=== PATIENT | female | born 1940 | race Caucasian/White ===

== ENCOUNTER 2025-01-12 08:06 | Observation (INO) ==
--- NOTE | 2024-12-15 12:56 | PAT Medication Instructions ---
Medication Instructions Date of Service December 15, 2024 Home Medications alendronate 70 mg tablet (Fosamax) 70 mg PO WK ascorbic acid (vitamin C) 250 mg chewable tablet (Vitamin C) 500 mg PO DAILY aspirin 81 mg tablet,delayed release 81 mg PO DAILY cholecalciferol (vitamin D3) 50 mcg (2,000 unit) tablet (Vitamin D3) 100 mcg PO QAM ferrous sulfate 142 mg (45 mg iron) tablet,extended release (Slow Fe) 142 mg PO DAILY furosemide 40 mg tablet (Lasix) 40 mg PO QAM levothyroxine 25 mcg tablet (Synthroid) 25 mcg PO QAM lisinopril 20 mg tablet 20 mg PO QAM simvastatin 20 mg tablet 20 mg PO QPM vit C 250 mg-vit E 90 mg-zinc 40 mg-copper 1 di-lvhhul-cwcbbt capsule (PreserVision AREDS-2) 1 tab PO BID acetaminophen 500 mg tablet (Tylenol Extra Strength) 1,000 mg PO UD PRN Pain calcium 500 mg-vitamin D3 200 unit-vitamin K 40 mcg chewable tablet 1 tab PO DAILY dofetilide 500 mcg capsule 500 mcg PO BID doxylamine succinate 25 mg tablet 0 mg PO HS ibuprofen 400 mg tablet 400 - 600 mg PO UD PRN Pain ASK your surgeon for instructions ibuprofen 400 mg tablet 400 - 600 mg PO UD PRN Pain ASK your prescriber and surgeon aspirin 81 mg tablet,delayed release 81 mg PO DAILY STOP taking 2 weeks before surgery (or as soon as possible if surgery is within 2 weeks) vit C 250 mg-vit E 90 mg-zinc 40 mg-copper 1 fj-oyvbnq-salbbf capsule (PreserVision AREDS-2) 1 tab PO BID DO NOT take the morning of surgery alendronate 70 mg tablet (Fosamax) 70 mg PO WK ascorbic acid (vitamin C) 250 mg chewable tablet (Vitamin C) 500 mg PO DAILY cholecalciferol (vitamin D3) 50 mcg (2,000 unit) tablet (Vitamin D3) 100 mcg PO QAM ferrous sulfate 142 mg (45 mg iron) tablet,extended release (Slow Fe) 142 mg PO DAILY furosemide 40 mg tablet (Lasix) 40 mg PO QAM lisinopril 20 mg tablet 20 mg PO QAM calcium 500 mg-vitamin D3 200 unit-vitamin K 40 mcg chewable tablet 1 tab PO DAILY Take morning of surgery With a small sip of water, OTHERWISE NOTHING TO EAT OR DRINK AFTER MIDNIGHT: levothyroxine 25 mcg tablet (Synthroid) 25 mcg PO QAM acetaminophen 500 mg tablet (Tylenol Extra Strength) 1,000 mg PO UD PRN Pain (if needed) dofetilide 500 mcg capsule 500 mcg PO BID Take evening before surgery simvastatin 20 mg tablet 20 mg PO QPM acetaminophen 500 mg tablet (Tylenol Extra Strength) 1,000 mg PO UD PRN Pain (if needed) dofetilide 500 mcg capsule 500 mcg PO BID doxylamine succinate 25 mg tablet 0 mg PO HS Other Notes If you have any questions please call us at [phone] or [phone] or [phone] or [phone]
--- NOTE | 2024-12-22 13:33 | Anesthesiology Consultation ---
Date of Service December 22, 2024 Assessment & Plan (1) Encounter for pre-operative examination: - awaiting PCP clearance for anemia/co-morbidities, patient was seen 12/16 but testing was done after visit. Optimization form to be faxed to [facility]. - awaiting surgeon ordered UA, patient reported plan to complete this through [facility] lab. - cardiology office visit 09/27/24: "...afib, long-standing persistent, initial dx 2006...CAD mild nonobstructive, dx 2007. heart failure recovered EF. Aortic stenosis...symptoms are stable from last visit...stable dyspnea on exertion with heavy exertion, improves with rest...+ bright red blood in her stool. Seeing GI...in NSR...avoid other sander blockade...heart failure...compensated, doing well...plan to see her back in 6 months..." - Outpatient joint assessment: Patient is currently scheduled for inpatient pathway. If re-evaluated and patient/surgeon requests outpatient pathway, patient is not candidate for outpatient joint program. Chart Review Chart Review: Patient seen in Pre Admission Testing Teaching & Discussion Pre-Anesthesia Teaching/Discussion Notes: Instructed NPO after midnight before surgery, except medications with 15 cc of water. Medication instructions provided according to the PAT guidelines. History Surgery Operation Date: 01/12/25 07:15 Proposed Procedures p Left Reverse Total Shoulder Arthroplasty - Wicho Blackomn MD Height/Weight Height: 5 ft Weight: 65.8 kg Allergies Allergy/AdvReac Type Severity Reaction Status Date / Time adhesive Allergy Mild skin Verified 12/15/24 08:31 irritation Medications Home Medications Medication Instructions Recorded Confirmed Last Taken alendronate 70 mg tablet (Fosamax) 70 mg PO WK 07/09/22 12/15/24 Unknown ascorbic acid (vitamin C) 250 mg 500 mg PO DAILY 07/09/22 12/15/24 Unknown chewable tablet (Vitamin C) aspirin 81 mg tablet,delayed 81 mg PO DAILY 07/09/22 12/15/24 Unknown release cholecalciferol (vitamin D3) 50 100 mcg PO QAM 07/09/22 12/15/24 Unknown mcg (2,000 unit) tablet (Vitamin D3) ferrous sulfate 142 mg (45 mg 142 mg PO DAILY 07/09/22 12/15/24 Unknown iron) tablet,extended release (Slow Fe) furosemide 40 mg tablet (Lasix) 40 mg PO QAM 07/09/22 12/15/24 Unknown levothyroxine 25 mcg tablet 25 mcg PO QAM 07/09/22 12/15/24 Unknown (Synthroid) lisinopril 20 mg tablet 20 mg PO QAM 07/09/22 12/15/24 Unknown simvastatin 20 mg tablet 20 mg PO QPM 07/09/22 12/15/24 Unknown vit C 250 mg-vit E 90 mg-zinc 40 1 tab PO BID 07/09/22 12/15/24 Unknown mg-copper 1 zh-zvtyop-bgcrdw capsule (PreserVision AREDS-2) acetaminophen 500 mg tablet 1,000 mg PO UD PRN Pain 12/15/24 12/15/24 Unknown (Tylenol Extra Strength) calcium 500 mg-vitamin D3 200 1 tab PO DAILY 12/15/24 12/15/24 Unknown unit-vitamin K 40 mcg chewable tablet dofetilide 500 mcg capsule 500 mcg PO BID 12/15/24 12/15/24 Unknown doxylamine succinate 25 mg tablet 0 mg PO HS 12/15/24 12/15/24 Unknown ibuprofen 400 mg tablet 400 - 600 mg PO UD PRN Pain 12/15/24 12/15/24 Unknown Past Medical History Medical History (Updated 12/22/24 @ 16:16 by Carmelina Malave PA-C) Anemia most recent iron infusions Mar 2024. Aortic stenosis Mild to moderate aortic stenosis (CHELE 1.2 cm2, mean gradient 19 mmHg) on 2024 echo Arthritis Atrial fibrillation dx approx 2006, hx multiple cardioversions, 2 ablation procedures and presence of watchman device. History of GI bleed (2016) hx blood transfusions. History of postoperative nausea History of UTI tx for oct 2024. At current end of urination sensitivity felt/plans to discuss and request check at pcp visit 12/16/24-just finished antibiotic course yesterday with symptom resolution Hyperlipidemia Hypertension controlled, stable per pt Hypothyroidism Macular degeneration Injections for (Eyelea) very 4 months, due 09 Feb 2025 Osteoporosis bone density due Dec 2024. Patient denies h/o stroke, seizures, heart attack, heart failure, DM, or blood clots/DVTs. Exercise / Class Metabolic Activity II 4-5 Yardwork/Stairs/Walk up hill (occasional shortness of breath with one flight of stairs-ongoing several years-denies change or worsening; denies chest discomfort) Past Family History Family History Other No family history of adverse response to anesthesia Past Surgical History Surgical History H/O cardiac radiofrequency ablation 2016 History of anesthesia reaction bp dropped with carpal tunnel sx and after watchman procedure had nausea. History of bilateral tubal ligation History of cardiac cath >NO STENTS : pt is not sure if she had cath in the , verifies having heart cath in Mar 2007 heart cath in [place]/no stent(s). History of cardioversion X 6 (LAST TIME 05/03/22) FOLLOWED BY VEGA NOGUERA History of carpal tunnel release LEFT History of colonoscopy History of esophagogastroduodenoscopy (EGD) History of left cataract surgery History of right cataract surgery History of tonsillectomy Presence of Watchman left atrial appendage closure device 08/16/2019 [place] teeth removed Past Anesthesia History No Family Hx of Anesthesia Complications and Other (hypotension with carpal tunnel) History of PONV No Hx of Motion Sickness and History of PONV Social History Smoking Status: Never smoker Do You Dip or Chew Tobacco: No Hx Alcohol Use: No Hx Substance Use: No substance use type: does not use Review of Systems Patient denies chest pain, snoring, witnessed apneas, reflux, fever, chills, cough, wheezing, or palpitations. Physical Exam Vital Signs Vitals BP 155/62 P 48 TEMP 97.6 SP02 96% on RA RESP 18 Physical Patient resting comfortably in chair in no acute distress, alert and oriented, responding appropriately throughout visit Full cervical extension range of motion without pain TMD 3.5 finger breadths Mallampati Score 3 Dentition: intact, denies chipped or loose teeth, caps/crowns, implants or bridges Lungs: normal respiratory effort. Good air movement, clear throughout to auscultation, no adventitious breath sounds Cardiac: bradycardic, regular rhythm Carotid arteries: negative bruit bilat Lab Results Anesthesia Preop Results Results Anesthesia Widget: WBC 5.35 K/ul (4.8-10.8) 12/22/24 Hgb 10.5 g/dl (12.0-16.0) L 12/22/24 Hct 32.1 % (37.0-47.0) L 12/22/24 Plt 188 K/uL (130-400) 12/22/24 Na 140 mmol/L (136-145) 12/22/24 K 4.2 mmol/L (3.5-5.1) 12/22/24 Cl 102 mmol/L (98-107) 12/22/24 CO2 31 mmol/L (21-32) 12/22/24 BUN 20 mg/dl (6-23) 12/22/24 Creat 0.63 mg/dl (0.6-1.2) 12/22/24 Glucose Level 95 mg/dl (70-99(Fasting)) 12/22/24 PT 10.5 Seconds (9.0-12.0) 12/22/24 PTT 27 Seconds (21-31) 12/22/24 INR 1.0 (0.9-1.1) 12/22/24 Blood Type O Positive 12/22/24 Antibody Screen NEGATIVE 12/22/24 Testing Electrocardiogram Date: 09/27/24 Sinus bradycardia, rate 55 bpm with rate variation Prominent R (V1) nonspecific Chest X-Ray Date: 12/22/24 There is left atrial appendage occlusion device. There is prominent cardiomegaly without pulmonary vascular congestion. No consolidation or pleural effusion. There is minimal scoliosis. There is mild chronic-appearing height loss at an upper lumbar vertebral body. IMPRESSION: No acute findings. Echocardiogram Date: 09/27/24 EF 55-60% Mild aortic regurgitation Mild tricuspid regurgitation Mild to moderate aortic stenosis (CHELE 1.2 cm2, mean gradient 19 mmHg) Borderline pulmonary hypertension, estimated pulmonary artery systolic pressure 38 mmHg Stress Test Date: 11/28/23 MPHR 59% Negative Overall probability of hemodynamically significant underlying CAD being present, based upon these combined findings, is low EF 88%
--- NOTE | 2025-01-11 18:39 | History & Physical Report ---
Date of Service January 11, 2025 Assessment & Plan (1) Osteoarthritis of left shoulder region: Plan: Left shoulder severe end-stage glenohumeral osteoarthritis with pseudo paralytic dysfunctional shoulder best treatment option at patient's age with shoulder function that she has is reversed total shoulder arthroplasty. Will perform biceps tenodesis if appropriate. Osteoarthritis type: primary Qualified Code(s): M19.012 - Primary osteoarthritis, left shoulder (2) Tendinopathy of left rotator cuff: History of Present Illness Chief Complaint: Chronic left shoulder pain Primary Care Provider: NO PCP Active 84-year-old female with bilateral shoulder pain left greater than right with advanced osteoarthritis with bone loss. Patient denies headaches, sweats, fevers, chills, double vision, blurred vision, cough, sore throat, dysphagia, chest pain, sob, wheezing, n/v/d/c, numbness, tingling, fatigue, urinary symptoms, mood disorders. ROS positive for old cardiac issues, some shortness of breath climbing stairs walking up a hill or running, underactive thyroid, A-fib, back pain and arthritis. Allergies Allergy/AdvReac Type Severity Reaction Status Date / Time adhesive Allergy Mild skin Verified 12/15/24 08:31 irritation Home Medications Medication Instructions Recorded Confirmed Type alendronate 70 mg tablet (Fosamax) 70 mg PO WK 07/09/22 12/15/24 History ascorbic acid (vitamin C) 250 mg 500 mg PO DAILY 07/09/22 12/15/24 History chewable tablet (Vitamin C) aspirin 81 mg tablet,delayed 81 mg PO DAILY 07/09/22 12/15/24 History release cholecalciferol (vitamin D3) 50 100 mcg PO QAM 07/09/22 12/15/24 History mcg (2,000 unit) tablet (Vitamin D3) ferrous sulfate 142 mg (45 mg 142 mg PO DAILY 07/09/22 12/15/24 History iron) tablet,extended release (Slow Fe) furosemide 40 mg tablet (Lasix) 40 mg PO QAM 07/09/22 12/15/24 History levothyroxine 25 mcg tablet 25 mcg PO QAM 07/09/22 12/15/24 History (Synthroid) lisinopril 20 mg tablet 20 mg PO QAM 07/09/22 12/15/24 History simvastatin 20 mg tablet 20 mg PO QPM 07/09/22 12/15/24 History vit C 250 mg-vit E 90 mg-zinc 40 1 tab PO BID 07/09/22 12/15/24 History mg-copper 1 jj-hnytal-hszsdn capsule (PreserVision AREDS-2) acetaminophen 500 mg tablet 1,000 mg PO UD PRN Pain 12/15/24 12/15/24 History (Tylenol Extra Strength) calcium 500 mg-vitamin D3 200 1 tab PO DAILY 12/15/24 12/15/24 History unit-vitamin K 40 mcg chewable tablet dofetilide 500 mcg capsule 500 mcg PO BID 12/15/24 12/15/24 History doxylamine succinate 25 mg tablet 0 mg PO HS 12/15/24 12/15/24 History ibuprofen 400 mg tablet 400 - 600 mg PO UD PRN Pain 12/15/24 12/15/24 History Past Med/Surg History Problem List (Updated 01/11/25 @ 18:38 by Wicho Blackmon MD) Tendinopathy of left rotator cuff Osteoarthritis of left shoulder region Encounter for pre-operative examination Medical History (Updated 01/11/25 @ 18:38 by Wicho Blackmon MD) Aortic stenosis Mild to moderate aortic stenosis (CHELE 1.2 cm2, mean gradient 19 mmHg) on 2024 echo History of postoperative nausea History of GI bleed (2016) hx blood transfusions. History of UTI tx for oct 2024. At current end of urination sensitivity felt/plans to discuss and request check at pcp visit 12/16/24-just finished antibiotic course yesterday with symptom resolution Osteoporosis bone density due Dec 2024. Arthritis Hypothyroidism Anemia most recent iron infusions Mar 2024. Macular degeneration Injections for (Eyelea) very 4 months, due 09 Feb 2025 Atrial fibrillation dx approx 2006, hx multiple cardioversions, 2 ablation procedures and presence of watchman device. Hypertension controlled, stable per pt Hyperlipidemia Surgical History History of left cataract surgery History of right cataract surgery History of cardioversion X 6 (LAST TIME 05/03/22) FOLLOWED BY VEGA NOGUERA History of carpal tunnel release LEFT History of anesthesia reaction bp dropped with carpal tunnel sx and after watchman procedure had nausea. Presence of Watchman left atrial appendage closure device 08/16/2019 History of bilateral tubal ligation History of esophagogastroduodenoscopy (EGD) History of colonoscopy [place] teeth removed History of tonsillectomy H/O cardiac radiofrequency ablation 2016 History of cardiac cath >NO STENTS : pt is not sure if she had cath in the , verifies having heart cath in Mar 2007 heart cath in [place]/no stent(s). Family History Other No family history of adverse response to anesthesia Social History Smoking Status: Never smoker Second Hand Exposure: No; Do You Dip or Chew Tobacco: No; Hx Alcohol Use: No Hx Substance Use: No Preferred Language: [place] Irish Communication Ability: Effective [employer] Sales Representative Required: No Beliefs That Will Affect Care: None Current Living Situation: Alone Feels Safe at Home: Yes Assistive Devices: Glasses Review of Systems All systems reviewed & are unremarkable except as noted in HPI & below Physical Exam Constitutional: WD/WN, vitals as above Respiratory: normal respiratory effort; no respiratory distress Cardiovascular: Rate/Rhythm: regular rate and regular rhythm Musculoskeletal: Left shoulder with atrophy abnormal rhythm crepitation limited function and range of motion with 80 degrees flexion passively only 30 degrees active flexion 40 degrees active abduction and 70 degrees of passive abduction with 10 degrees of external rotation and 40 degrees internal rotation and unable to reach arm b ehind her back. Distal neurovascular exam intact. Skin: no rashes, warm and dry Neurologic: normal touch/pain/proprioception Psychiatric: A+Ox3, euthymic affect Results & Data Diagnostic Findings Severe end-stage glenohumeral osteoarthritis with bone loss with centralized wear pattern
[~2025-01-12 08:06] MED LIST: BUPIVACAINE 0.5 % 5 MG/1 ML PF 10ML VIAL ONE; LIDOCAINE 2% 2 ML VIAL/AMP(20MG/ML) INFIL ONE
[2025-01-12] MEDS: ACETAMINOPHEN 500 MG TAB PO SCH ×2 (08:39→17:05)
[2025-01-12] MEDS: FAMOTIDINE 20 MG TAB PO SCH (08:39)
[2025-01-12] MEDS: CeleBREX 200 MG CAP PO SCH (08:39)
[2025-01-12] MEDS: GABAPENTIN 300 MG CAP PO SCH (08:39)
[2025-01-12] MEDS: LR 60ML/HR IV SCH (08:40)
[2025-01-12] MEDS: METOCLOPRAMIDE HCL 10 MG TABLET PO SCH (08:40)
[2025-01-12] MEDS: LR 15ML/HR IV SCH (08:40)
[2025-01-12] MEDS: dexAMETHasone**PF** 10 MG/ML VIAL IV SCH (08:41)
[2025-01-12] MEDS ORDERED: HYDROmorphone INJ 2 MG/ML SYR/VIAL IV PRN (09:48)
[2025-01-12] MEDS ORDERED: PROMETHAZINE HCL 6.25 MG in SODIUM CHLORIDE 0.9% 50 ML IV PRN (09:48)
[2025-01-12] MEDS ORDERED: ONDANSETRON INJ 2 MG/ML 2 ML VIAL IV PRN ×2 (09:48→16:16)
[2025-01-12] MEDS ORDERED: ATROPINE SULFATE 0.1 MG/ML 10ML SYR IV PRN (09:48)
[2025-01-12] MEDS ORDERED: PROPOFOL IV EMULSION 10 MG/ML 20 ML VIAL IV ONE (10:07)
[2025-01-12] MEDS ORDERED: LIDOCAINE 2% 2 ML VIAL/AMP(20MG/ML) INFIL ONE (10:07)
[2025-01-12] MEDS ORDERED: ROCURONIUM BROMIDE 10 MG/ML 5 ML VIAL IV ONE (10:07)
[2025-01-12] MEDS ORDERED: MIDAZOLAM HCL 1 MG/ML 2ML VIAL ONE (10:08)
[2025-01-12] MEDS ORDERED: PHENYLEPHRINE HCL 10 MG/ML VIAL ONE (10:09)
--- NOTE | 2025-01-12 11:15 | History & Physical Bridge Note ---
Date of Service January 12, 2025 History & Physical Bridge Note I have examined the patient, reviewed the History & Physical and in the interval since the performance of the History & Physical I have noted the following changes of clinical significance: no changes noted
--- NOTE | 2025-01-12 11:15 | Post Operative Brief Note ---
Immediate Post Op Note Date of Surgery January 12, 2025 Pre & Post Diagnosis Operation Date: 01/12/25 10:00 <No data on this case meets the specified criteria> Procedure Operation Date: 01/12/25 10:00 <No data on this case meets the specified criteria> Surgeon Wicho Blackmon MD
[2025-01-12] MEDS: TRANEXAMIC ACID 1,000 MG **IV Pre-op IV SCH (11:33)
[2025-01-12] MEDS ORDERED: SUGAMMADEX SODIUM 200 MG/2 ML VIAL IV ONE (14:27)
--- NOTE | 2025-01-12 14:51 | Operative Report ---
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 Post-Op Diagnosis: Left Shoulder Degenerative Joint Disease end-stage osteoarthritis possibly inflammatory arthritis with bone loss glenoid and humeral head and biceps tendinopathy biceps tenosynovitis with articular debris and biceps sheath. I identified the patient and participated in the time-out.: Yes Procedure Operation Date: 01/12/25 10:00 Actual Procedures p Left Reverse Total Shoulder Arthroplasty, biceps tenodesis, biceps tenosynovectomy and excision articular loose bodies biceps tendon sheath- Wicho Blackmon MD Surgeon Wicho Blackmon MD Hourly Sign Language Interpreter Marcelo WARNER Estimated Blood Loss 50 Findings Consistent with Post-Op Diagnosis Specimens Humeral head Drains 2 Hemovac Anesthesia Type General Regional Complications none Disposition Disposition: Recovery Room Indications 84 old female chronic bilateral shoulder pain left greater than right with very limited function with pseudoparalysis left shoulder with x-rays demonstrating glenoid bone loss with B2 glenoid posterior superior glenoid bone loss. Description of Procedure The patient was taken to the operating room and anesthetized under regional block and general anesthetic. The patient was positioned on the operating table in a 30 beach chair position with a towel roll under the medial border of the left scapula. The arm was draped free to be able to manipulate the shoulder as needed. The left upper extremity was prepped and draped in usual sterile fashion. Exam demonstrated a thin arm with marked [id number] crepitation with external rotation with arm at side to 5 to 10 degrees and abduction of 40 degrees and flexion of 40 degrees and internal rotation 30 degrees. An anterior deltopectoral approach was performed. A longitudinal incision was made in the deltopectoral interval. The skin was incised sharply. Subcutaneous flaps were elevated off the fascia. The cephalic vein was dissected out and retracted lateral with the deltoid. The clavipectoral fascia was divided at the lateral margin of the conjoined tendon and extended up to the CA ligament. The following findings were noted: The rotator cuff was noted to be intact but the supraspinatus had some tendinopathy and superficial calcium deposits that were excised. The upper centimeter of the pectoralis was released for inferior exposure. The biceps tendon findings demonstrated chronic biceps tenosynovitis with articular debris in the bicipital groove within the biceps sheath. Some of this was bony. A biceps tendon synovectomy performed and the debris was all removed around the biceps.. the biceps tendon was tenodesed to the pectoralis tendon with #2 FiberWire. The proximal biceps was resected. The subscapularis tendon was taken down off the lesser tuberosity using a subperiosteal peel dissection. A #1 Vicryl traction suture was placed into the free end of the subscapularis tendon and capsule. The subscapular muscle fibers were split longitudinally at the level of the circumflex vessels. The circumflex vessels were identified and tied off with silk ties and divided laterally. A Kitner elevator was used to free up the inferior fibers of the subscapularis off of the capsule. The axillary nerve was identified with a tug test and protected with a blunt Peri retractor between the nerve and the capsule. The subscapularis tendon was then taken down off of the lesser tuberosity subperiosteally and subperiosteal dissection was performed along the neck of the humerus as the arm is gradually actually rotated exposing the humeral head. Humeral head had very large cysts in the posterior articular surface with significant erosion of the posterior articular surface. There was complete eburnated bone. This had some appearance that would suggest possible inflammatory arthritic component. There were moderate irregular inferior humeral osteophytes extending into the lateral humerus adjacent to the lesser tuberosity as well. Retractors were readjusted a nd the inferior osteophytes were all resected using an artist chisel. Remainder the osteophytes removed with a rongeur. A Metcalf elevator was used to assist in releasing the capsule of the neck of the humerus. The capsule was divided with Yates scissors down to the glenoid released off the anterior glenoid and the rotator interval was released to meet the capsular release and a 360 release of the subscapularis was accomplished. A Fukuda retractor was placed into the joint retracting the humeral head posterior. Glenoid findings demonstrated a B2 glenoid posterior glenoid bone loss. In the area of the posterior glenoid bone loss there was a membrane over this area suggesting that possibly there was very limited range of motion of the shoulder allowing this to form due to shoulder not moving due to the severity of the arthritis. This membrane was curetted off.. The labrum and biceps tendon attachment which demonstrated chronic tendinopathy and widening was resected. an anterior-inferior and posterior inferior capsular release were performed with electrocautery and a Metcalf elevator on bone with the axillary nerve protected inferiorly by the retractor. Attention was then taken to the humeral preparation. The cutting guide was placed into the humeral head. It was positioned at 20 of retroversion. Oscillating saw was used to resect the humeral head giving the cut above the level of the posterior rotator cuff insertion site. The humerus was then prepared for the stem. I used the ascend flex stem from [employer]. The sizing broaches were used followed by trial broaches up to a size 4B long which had the appropriate fit and fill. The appropriate sized cut protector was placed. The humerus was then retracted posterior to the glenoid. The glenoid was sized for a 25 mm baseplate full wedge based on blueprint preoperative CT scanning with custom guide created.. The guide for the baseplate was positioned with a good fit compared to the model and the central guidepin was placed. The reamers for the full wedge 25 mm baseplate were used. The reamer for the central boss was used. The depth gauge was used to measure for the central screw. The 25 mm full wedge with a 6.5 x 35 mm central screw baseplate was screwed into position. There was excellent tight fixation. The base plate was transfixed further with superior compression screw at the maximum wedge which was at about the 2 o'clock position posteriorly and remaining 3 screws were locking screws with stable fixation. The fan reamer was used for the 36 millimeter glenoid sphere was placed but there was no bone contact to the offset due to the wedge.. After irrigation with pulsatile lavage saline the 36 mm standard glenoid sphere was impacted onto the baseplate and the security screw was tightened. Attention was taken back to the humerus. The cut protector was removed and the posterior low offset humeral tray trial was assembled to the trial stem rotated appropriately to get bony coverage and then screwed in position. A trial reduction was performed. A +6/36 mm flex reversed trial insert demonstrated good stability and no shuck. The trials were removed. 2 drill holes are made into the harder bone in the bicipital groove area and 2 #5 FiberWire sutures were placed transosseously. The canal was irrigated with pulsatile saline solution. The final component was assembled. The final component was 4B long stem assembled to the +0 low offset tray and a 36 mm +6 reversed polyethylene insert. The stem was partially placed down into the canal and then I bone grafted around it to enhance the fixation with bone graft harvested from the subchondral bone of the cut humeral head and then this was impacted into the humerus with a tight press-fit. It was reduced to the glenoid sphere. Stability was verified. Subscapularis was repaired with the #5 FiberWire sutures using Bill-Pedro suture technique. The pectoralis was repaired with #2 FiberWire [id number] sutures reinforcing the biceps tendon tenodesis. The arm was taken through a range of motion which demonstrated 130 degrees flexion 90 degrees abduction and 70 degrees external rotation without tension on the repair. The implant was stable through the range of motion tested. The wound was copiously irrigated. Irrisept was used. 2 Hemovac drains were placed. The deltopectoral interval was closed with [id number]-hb-[id number] #1 Vicryl sutures. The subcutaneous tissues were closed with 2-0 Vicryl sutures. The skin was closed with surgical colleen. Silverlon sterile dressing was applied and a shoulder immobilizer. Marcelo WARNER my physician assistant oceanographer assisted in the procedure to the entire procedure including patient positioning arm positioning prepping and draping soft tissue retraction instrument management suture management and performed the subcutaneous and skin closure and will participate in the postoperative care of the patient. Im ordering collagen sheets as a primary dressing and bordered super absorbent for secondary dressings for the wound resulting from this surgery. Collagen is being utilized to encourage the growth of blood vessels and granulation tissue. The collagen will also speed up the wound healing process, increase skin tensile strength at the surgery site and lessen the chance of a wound dehiscence, help prevent infection, and reduce the appearance of scarring. The silicone secondary dressings will protect the wound and help keep it clean and minimize that chances for infection. I believe that this treatment protocol is medically necessary to help facilitate the best outcome possible for my patient. I attest to the content of the Intraoperative Record and any orders documented therein. Any exceptions are noted below.
--- NOTE | 2025-01-12 15:21 | XRay Report ---
XR shoulder LT min 2V routine CLINICAL HISTORY: Post shoulder surgery COMPARISON: None FINDINGS: Left shoulder prosthesis. No hardware complication. There is expected soft tissue gas. Sta ples are present. Postoperative drain is present. IMPRESSION: Unremarkable postoperative exam. ACT 112: Negative or not required by law. Electronically signed by: Rohan Carpenter M.D. 01/12/2025 3:19 PM
--- NOTE | 2025-01-12 15:34 | Anesthesiology Progress Note ---
Date of Service January 12, 2025 Anesthesia Post Procedure Vital Signs Vital Signs: Temp Pulse Pulse Resp BP Pulse Ox O2 Del Method 01/12/25 15:25 64 17 141/71 H 95 Room Air 01/12/25 15:15 79 19 141/64 H 95 Room Air 01/12/25 15:05 76 18 144/82 H 95 Room Air 01/12/25 14:55 70 18 143/76 H 95 Room Air 01/12/25 14:48 36.8 C 18 154/95 H 94 Room Air 01/12/25 08:25 54 L 18 158/64 H 96 Room Air 01/12/25 08:20 36.7 C 48 L 18 172/74 H 98 Room Air Transfer of Care Handoff Completed per policy Notes Mental Status: alert / awake / arousable and participated in evaluation Patient Amnestic to Procedure: Yes Nausea / Vomiting: adequately controlled Pain: adequately controlled Airway Patency, RR, SpO2: stable & adequate BP & HR: stable & adequate Hydration State: stable & adequate Anesthetic Complications: no major complications apparent
[2025-01-12] MEDS ORDERED: NALOXONE HCL 0.4 MG/1 ML VIAL/CARP IV PRN (16:16)
[2025-01-12] MEDS ORDERED: ALUMINUM/MAGNESIUM SUSP 30 ML UDC PO PRN (16:16)
[2025-01-12] MEDS ORDERED: diphenhydrAMINE Capsule 25 MG CAP PO PRN (16:16)
[2025-01-12] MEDS ORDERED: MAGNESIUM HYDROXIDE SUSP 30 ML UDC PO PRN (16:16)
[2025-01-12] MEDS ORDERED: METOCLOPRAMIDE HCL INJ 5 MG/ML 2 ML VIAL IV PRN (16:16)
[2025-01-12] MEDS ORDERED: HYDROmorphone INJ 0.5 MG/0.5 ML SYR IV PRN (16:16)
--- NOTE | 2025-01-12 16:52 | Hospitalist Consultation ---
"Date of Consultation January 12, 2025 Assessment & Plan (1) Osteoarthritis of left shoulder region: (2) Atrial fibrillation: (3) Hypertension: Plan Irma is a pleasant 84-year-old woman with PMH of atrial fibrillation s/p Watchman, hypertension, hyperlipidemia, hypothyroidism, aortic stenosis, osteoporosis, arthritis, anemia, macular degeneration. She presented for left reverse total shoulder arthroplasty with Dr. Blackmon on 01/12/2025. Hospital medicine was consulted for postoperative medical management. #OA of left shoulder - s/p reverse total shoulder arthroplasty - Will defer pain regimen, activity level, VTE prophylaxis, drain management, discharge planning to primary team - CBC and BMP with a.m. labs #A-fib | Aortic stenosis history of 8 cardioversions, 2 ablation procedures, now s/p Watchman device - No anticoagulation at baseline - Continue baby aspirin and dofetilide 500 mcg twice daily #Hypertension | Hyperlipidemia Stable, well-controlled. Continue lisinopril 20 mg daily, Lasix 40 mg daily, simvastatin 20 mg HS #Hypothyroidismcontinue levothyroxine 25 mcg daily #Anemiahas received iron infusions in the past, most recently in March 2024 - Continue oral iron supplement daily - Follow CBC with AM labs #Osteoporosistakes cholecalciferol daily and Fosamax 70 mg weekly can continue in outpatient setting #Macular degenerationgets Eylea injections every 4 months, due next in February 2025 Hospital medicine will continue to follow. Please reach out with any questions or concerns. Reviewed prior medical records. Updated son and cousin at bedside. Supervising Physician Co-Signing Physician Notes PA Supervision Note: I personally saw and examined the patient. I verified all queen points and agree with ALANA Sibley with the following exceptions and/or additions: S-Pt doing well post-op-no pain. Denies SOB, CP, heart palpitations, or nausea. O- Vitals reviewed Gen: [AAOx3, NAD] HEENT: [anicteric sclerae, EOMI] CV: [RRR no mgr nl S1S2] Pulm: [CTAB no wcr] Abd: [+BS soft NT ND no masses or hernias] Ext: LUE in shoulder sling A/P-84 yo female here with left TSA. No acute issues follow CBC, BMP in AM Monitor BPs, HR given h/o Afib add melatonin 3mg po x 1 now for insomnia History of Present Illness Reason for Consultation: Postop management Requesting Physician: Wicho Blackmon MD Attending Physician: Wicho Blackmon MD History of Present Illness Irma is a very pleasant 84-year-old woman with PMH of atrial fibrillation s/p Watchman, hypertension, hyperlipidemia, hypothyroidism, aortic stenosis, osteoporosis, arthritis, anemia, macular degeneration. She presented for left reverse total shoulder arthroplasty with Dr. Blackmon on 01/12/2025. Per review of operative report, EBL was listed as 50 cc, and there were no complications noted. Her postoperative vital signs have been stable. Irma was seen and evaluated at bedside with her son and cousin present. Patient reports that she does not have any pain at this time. She still does not have much sensation nor motor function of her left upper extremity at this time. She is just beginning to wiggle her fingers. She has been eating and drinking without difficulty since her surgery. She has not passed gas or had a BM postoperatively yet. She denies any headache, dizziness, lightheadedness, chest pain, shortness of breath, cough, sore throat, abdominal pain, nausea or vomiting. She denies any acute complaints or concerns at this time. Patient reports that she she took her allowed morning medications today; no recent change in medications. She does not use supplemental oxygen at baseline. No CPAP at night. Allergies Allergy/AdvReac Type Severity Reaction Status Date / Time adhesive Allergy Mild skin Verified 01/12/25 08:04 irritation Home Medications Medication Instructions Recorded Confirmed Type alendronate 70 mg tablet (Fosamax) 70 mg PO WK 07/09/22 01/12/25 History ascorbic acid (vitamin C) 250 mg 500 mg PO DAILY 07/09/22 01/12/25 History chewable tablet (Vitamin C) aspirin 81 mg tablet,delayed 81 mg PO DAILY 07/09/22 01/12/25 History release cholecalciferol (vitamin D3) 50 100 mcg PO QAM 07/09/22 01/12/25 History mcg (2,000 unit) tablet (Vitamin D3) ferrous sulfate 142 mg (45 mg 142 mg PO DAILY 07/09/22 01/12/25 History iron) tablet,extended release (Slow Fe) furosemide 40 mg tablet (Lasix) 40 mg PO QAM 07/09/22 01/12/25 History levothyroxine 25 mcg tablet 25 mcg PO QAM 07/09/22 01/12/25 History (Synthroid) lisinopril 20 mg tablet 20 mg PO QAM 07/09/22 01/12/25 History simvastatin 20 mg tablet 20 mg PO QPM 07/09/22 01/12/25 History vit C 250 mg-vit E 90 mg-zinc 40 1 tab PO BID 07/09/22 01/12/25 History mg-copper 1 [id number] capsule (PreserVision AREDS-2) acetaminophen 500 mg tablet 1,000 mg PO UD PRN Pain 12/15/24 01/12/25 History (Tylenol Extra Strength) calcium 500 mg-vitamin D3 200 1 tab PO DAILY 12/15/24 01/12/25 History unit-vitamin K 40 mcg chewable tablet dofetilide 500 mcg capsule 500 mcg PO BID 12/15/24 01/12/25 History doxylamine succinate 25 mg tablet 0 mg PO HS 12/15/24 01/12/25 History ibuprofen 400 mg tablet 400 - 600 mg PO UD PRN Pain 12/15/24 01/12/25 History acetaminophen 500 mg tablet 1,000 mg (2 x 500 mg) PO Q8H #90 01/12/25 Rx (Tylenol Extra Strength) tabs aspirin 81 mg tablet,delayed 81 mg PO BID #60 tabs 01/12/25 Rx release cefadroxil 500 mg capsule 500 mg PO Q12H #28 caps 01/12/25 Rx celecoxib 200 mg capsule (Celebrex) 200 mg PO Q12H #60 caps 01/12/25 Rx oxycodone 5 mg tablet 5 mg PO Q4H PRN pain #30 tabs 01/12/25 Rx Patient History Medical History Aortic stenosis Mild to moderate aortic stenosis (CHELE 1.2 cm2, mean gradient 19 mmHg) on 2024 echo History of postoperative nausea History of GI bleed (2016) hx blood transfusions. History of UTI tx for oct 2024. At current end of urination sensitivity felt/plans to discuss and request check at pcp visit 12/16/24-just finished antibiotic course yesterday with symptom resolution Osteoporosis bone density due Dec 2024. Arthritis Hypothyroidism Anemia most recent iron infusions Mar 2024. Macular degeneration Injections for (Eyelea) very 4 months, due 09 Feb 2025 Atrial fibrillation dx approx 2006, hx multiple cardioversions, 2 ablation procedures and p resence of watchman device. Hypertension controlled, stable per pt Hyperlipidemia Surgical History History of left cataract surgery History of right cataract surgery History of cardioversion X 6 (LAST TIME 05/03/22) FOLLOWED BY VEGA NOGUERA History of carpal tunnel release LEFT History of anesthesia reaction bp dropped with carpal tunnel sx and after watchman procedure had nausea. Presence of Watchman left atrial appendage closure device 08/16/2019 History of bilateral tubal ligation History of esophagogastroduodenoscopy (EGD) History of colonoscopy [place] teeth removed History of tonsillectomy H/O cardiac radiofrequency ablation 2016 History of cardiac cath >NO STENTS : pt is not sure if she had cath in the , verifies having heart cath in Mar 2007 heart cath in [place]/no stent(s). Family History Other No family history of adverse response to anesthesia Social History Smoking Status: Never smoker Second Hand Exposure: No; Do You Dip or Chew Tobacco: No; Hx Alcohol Use: No Hx Substance Use: No Preferred Language: Andorran Communication Ability: Effective Clinical Trial Assistant Required: No Beliefs That Will Affect Care: None Current Living Situation: Alone Feels Safe at Home: Yes Assistive Devices: Glasses Review of Systems Review of Systems: All systems reviewed & are unremarkable except as noted in HPI & below Physical Exam Physical Exam: General: No acute distress, nondiaphoretic, well-developed, well-nourished. Skin: Warm, dry. No rashes or peripheral edema noted. MSK: Left upper extremity in sling. Able to wiggle fingers and has sensation in her fingertips. Hemovac drain noted. Cardiac: Regular rate and rhythm with 4/6 systolic murmur noted. Pulm: Clear to auscultation bilaterally without wheezes, rales or rhonchi. Normal respiratory effort. 95% on room air. Abdominal: Soft, nontender, nondistended. Bowel sounds present. Neuro: A&O x3. No focal neurological deficits. Results & Data Results & Data Vital Signs (Past 12 Hours) Vital Signs Temp Pulse Pulse Resp BP Pulse Ox O2 Del Method 01/12/25 15:55 59 L 16 116/68 95 Room Air 01/12/25 15:40 97.5 F L 61 16 128/64 95 Room Air 01/12/25 15:25 64 17 141/71 H 95 Room Air 01/12/25 15:15 79 19 141/64 H 95 Room Air 01/12/25 15:05 76 18 144/82 H 95 Room Air 01/12/25 14:55 70 18 143/76 H 95 Room Air 01/12/25 14:48 98.2 F 18 154/95 H 94 Room Air 01/12/25 08:25 54 L 18 158/64 H 96 Room Air 01/12/25 08:20 98.1 F 48 L 18 172/74 H 98 Room Air PG Care Time/CCT Total # of Minutes Spent Total Time Spent with Patient: Total time spent is greater than 50% in coordination of care (as documented) at patient's floor/unit and/or counseling patient: Coding Level of Care Code 00735 IN/OBS CONSULT LVL 4,60M Diagnoses Primary osteoarthritis of left shoulder M19.012 Osteoarthritis type: primary Atrial fibrillation I48.91 Hypertension I10 (1) Osteoarthritis of left shoulder region Osteoarthritis type: primary Qualified Code(s): M19.012 - Primary osteoarthritis, left shoulder"
[2025-01-12] MEDS: BUPIVACAINE LIPOSOME 1.3% 133 MG/10 ML VIAL ONE (16:54)
[2025-01-12] MEDS: SODIUM CHLORIDE 0.9% 1,000 ML IV SCH (17:06)
[2025-01-12] MEDS: SENNA 8.6 MG TAB PO SCH (20:50)
[2025-01-12] MEDS: DOCUSATE SODIUM 100 MG CAP PO SCH (20:50)
[2025-01-12] MEDS: TRANEXAMIC ACID / 0.7% NACL 1,000 MG/100 ML BAG IV SCH (20:51)
[2025-01-12] MEDS: CEROVITE ADV FORMULA TAB PO SCH (20:53)
[2025-01-12] MEDS: DOFETILIDE 125 MCG CAPSULE PO SCH (20:55)
[2025-01-12] MEDS: SIMVASTATIN 20 MG TAB PO SCH (20:57)
[2025-01-12] MEDS ORDERED: KETOROLAC TROMETHAMINE 15 MG/ML VIAL IV PRN (21:00)
[2025-01-12] MEDS: MELATONIN 3 MG TAB PO ONE (23:25)
[2025-01-13 06:33] VITALS: O2SAT 96
[2025-01-13 07:15] VITALS: BP 115/70; PULSE 68; RESP 16; TEMP 97.9
--- NOTE | 2025-01-13 07:43 | Orthopedic Progress Note ---
Date of Service January 13, 2025 Assessment & Plan (1) Osteoarthritis of left shoulder region: Plan: Postop day 1 left shoulder replacement reversed arthroplasty. Patient doing well. Plan is for patient to do home exercises for a few weeks and then start outpatient PT after colleen removed in office. Discussed activity precautions. Patient can be discharged home after OT PT eval and would recommend discontinuing drain prior to discharge. Left shoulder severe end-stage glenohumeral osteoarthritis with pseudo paralytic dysfunctional shoulder best treatment option at patient's age with shoulder function that she has is reversed total shoulder arthroplasty. Will perform biceps tenodesis if appropriate. (2) Tendinopathy of left rotator cuff: Admission and Anticipated Discharge Date Admission Date: January 12, 2025 Subjective No pain feels well Review of Systems Review of Systems: No chest pain shortness of breath feels well Physical Exam Musculoskeletal: Left shoulder distal motor exam intact good pulse dressing dry and intact. Shoulder normally located. Sling intact. Results & Data Vital Signs (Past 12 Hours) Vital Signs Temp Pulse Resp BP Pulse Ox O2 Del Method 01/13/25 07:13 36.6 C 68 16 115/70 96 Room Air 01/13/25 06:00 36.7 C 52 L 20 126/81 96 Room Air 01/13/25 02:59 36.7 C 60 16 113/65 97 Room Air 01/12/25 22:55 36.9 C 69 16 109/68 93 Room Air 01/12/25 21:15 Room Air 01/12/25 20:41 36.7 C 63 20 100/61 95 Room Air Diagnostic Findings Well aligned reverse total shoulder arthroplasty normally located (1) Osteoarthritis of left shoulder region Osteoarthritis type: primary Qualified Code(s): M19.012 - Primary osteoarthritis, left shoulder
--- NOTE | 2025-01-13 08:28 | Hospitalist Progress Note ---
"Date of Service January 13, 2025 Assessment & Plan (1) Osteoarthritis of left shoulder region: (2) Atrial fibrillation: (3) Hypertension: Plan Irma is a pleasant 84-year-old woman with PMH of atrial fibrillation s/p Watchman, hypertension, hyperlipidemia, hypothyroidism, aortic stenosis, osteoporosis, arthritis, anemia, macular degeneration. She presented for left reverse total shoulder arthroplasty with Dr. Blackmon on 01/12/2025. Hospital medicine was consulted for postoperative medical management. #OA of left shoulder - s/p reverse total shoulder arthroplasty - Will defer pain regimen, activity level, VTE prophylaxis, drain management, discharge planning to primary team - Mild acute blood loss anemia with postop hgb 9.1 - stable, no ongoing bleeding - Vital signs stable #A-fib | Aortic stenosis history of 8 cardioversions, 2 ablation procedures, now s/p Watchman device - No anticoagulation at baseline - Continue baby aspirin and dofetilide 500 mcg twice daily #Hypertension | Hyperlipidemia Stable, well-controlled. Continue lisinopril 20 mg daily, Lasix 40 mg daily, simvastatin 20 mg HS #Hypothyroidismcontinue levothyroxine 25 mcg daily #Anemiahas received iron infusions in the past, most recently in March 2024 - Continue oral iron supplement daily - Follow CBC with AM labs #Osteoporosistakes cholecalciferol daily and Fosamax 70 mg weekly can continue in outpatient setting #Macular degenerationgets Eylea injections every 4 months, due next in February 2025 Patient is medically stable for discharge from hospital medicine's perspective. Hospitalist team will sign off at this time. Please reach out with any questions or concerns. Updated son and cousin at bedside. Admission and Anticipated Discharge Date Admission Date: January 12, 2025 Supervising Physician Co-Signing Physician Notes chart reviewed case d/w S Maryjo CALERO, as above Subjective Patient seen and evaluated at bedside with her son present. She reports feeling well overall. She denies any pain at this time. She worked with OT this morning, awaiting PT evaluation. She is eager to be discharged home. We discussed the results of her morning labs. She is passing gas and well- tolerating her diet. She denies nausea, chest pain, shortness of breath, headache, abdominal pain. No acute complaints or concerns at this time. Physical Exam Physical Exam: General: No acute distress, nondiaphoretic, well-developed, well-nourished. Skin: Warm, dry. No rashes or peripheral edema noted. MSK: Left upper extremity in sling. Able to wiggle fingers. Sensation intact. Cardiac: Regular rate and rhythm with 4/6 systolic murmur noted. Pulm: Clear to auscultation bilaterally without wheezes, rales or rhonchi. Normal respiratory effort. 96% on room air. Abdominal: Soft, nontender, nondistended. Bowel sounds present. Neuro: A&O x3. No focal neurological deficits. Results & Data Results & Data Vital Signs (Past 12 Hours) Vital Signs Temp Pulse Resp BP Pulse Ox O2 Del Method 01/13/25 07:13 97.9 F 68 16 115/70 96 Room Air 01/13/25 06:00 98.1 F 52 L 20 126/81 96 Room Air 01/13/25 02:59 98.1 F 60 16 113/65 97 Room Air 01/12/25 22:55 98.4 F 69 16 109/68 93 Room Air 01/12/25 21:15 Room Air 01/12/25 20:41 98.1 F 63 20 100/61 95 Room Air Laboratory Results Reviewed CBC Reviewed BMP PG Care Time/CCT Total # of Minutes Spent Total Time Spent with Patient: Total time spent is greater than 50% in coordination of care (as documented) at patient's floor/unit and/or counseling patient: Coding Level of Care Code 01088 SUB INP/OBS CARE 2/35MIN Diagnoses Primary osteoarthritis of left shoulder M19.012 Osteoarthritis type: primary Atrial fibrillation I48.91 Hypertension I10 (1) Osteoarthritis of left shoulder region Osteoarthritis type: primary Qualified Code(s): M19.012 - Primary osteoarthritis, left shoulder"
[2025-01-13 09:17] LABS: Hematocrit (blood only) 28.3 % (37.0-47.0); Hemoglobin 9.1 g/dl (12.0-16.0); Immature Granulocytes # (auto) 0.05 K/uL (0.01-0.20); Immature Granulocytes % (auto) 0.7 %; Mean Corpuscular Hemoglobin 30.6 pg (25.0-34.0); Mean Corpuscular Volume 95.3 fL (80.0-100.0); Platelet Count 175 K/uL (130-400); RDW Standard Deviation 42.5 fL (36.4-46.3); Red Blood Count 2.97 M/uL (4.20-5.40); White Blood Count 7.28 K/ul (4.8-10.8)
[2025-01-13 09:31] LABS: Anion Gap 7.0 (3-11); Blood Urea Nitrogen 27.0 mg/dl (6-23); Calcium 7.9 mg/dl (8.6-10.3); Carbon Dioxide 25.0 mmol/L (21-32); Chloride 105.0 mmol/L (98-107); Creatinine Clr Calc Pharmacy 35.0 ml/min; Glucose 146.0 mg/dl (70-99(Fasting)); Potassium 4.1 mmol/L (3.5-5.1); Sodium 137.0 mmol/L (136-145)
[2025-01-13] MEDS: ASPIRIN 81 MG ECTAB PO SCH (09:33)
[2025-01-13] MEDS: dexAMETHasone 10 MG in SYRINGE 0 ML IV SCH (09:33)
[2025-01-13] MEDS: LEVOTHYROXINE SODIUM 25 MCG TABLET PO SCH (09:34)
[2025-01-13] MEDS: MULTIVITAMIN TAB PO SCH (09:34)
[2025-01-13] MEDS: CALCIUM 600MG + VIT D 400 IU TAB PO SCH (09:35)
[2025-01-13] MEDS: FUROSEMIDE 40 MG TAB PO SCH (09:35)
[2025-01-13] MEDS: CHOLECALCIFEROL 25 MCG (1000 UNITS) TAB PO SCH (09:36)
[2025-01-13] MEDS: ASCORBIC ACID 500 MG TAB PO SCH (09:36)
[2025-01-14] MEDS ORDERED: LEVOTHYROXINE SODIUM 25 MCG TABLET PO SCH (06:30)
== END 2025-01-13 10:49 | disposition home health service (06) ==
LOC: ASU 08:06 → 3E 08:06